=== PATIENT | female | born 1970 | race Caucasian/White ===

== ENCOUNTER 2025-03-07 08:52 | Day surgery (SDC) | payer OTHER, SELFPAY ==
--- OUTSIDE RECORDS SUMMARY | 2025-02-07 15:21 | XMS_ITS | Patient Health Record ---
Author Organization [facility] Address [address] [place] [address] Care Team Providers Care Manager Sales And Marketing Name Role Phone PERALTA, BETTIE Primary Care Provider Dinesh Klein Jr Unavailable Allergies No Known Allergies Reason For Referral No Information Medications Medication SIG (Take, Route, Frequency, Duration) Notes Start Date End Date Status Adderall Active PROzac 20 MG 1 capsule Orally Once a day Active clonazePAM Active Immunizations Vaccine Route Administration Date Status Comme nts Influenza Unknown 01/30/2025 Refused Social History Tobacco Use: Social History Observation Description Date Details (start date - stop date) Never Smoker NA - NA Tobacco Control (Standard) Question Answer Notes Tobacco use: Nonsmoker AUDIT-C (Standard) Question Answer Notes Did you have a drink contain ing alcohol in the past year? Yes How often did you have a dri nk containing alcohol in the past year? Daily or almost daily (4 points) How many drinks did you have on a typical day when you were drinking in the past year? 1 or 2 drinks (0 point) How often did you have six o r more drinks on one occasion in the past year? Less than monthly (1 point) Points 5 Interpretation Positive Problems Problem Type SNOMED Code ICD Code Onset Dates Problem Status W/U Status Risk Notes Problem Screening for malignant neoplasm of colon (115813886) Encounter for screening for malignant neoplasm of colon (Z12.11) Active confirmed Problem Pre-procedure evaluation check (111025744) Encounter for other preprocedural examination (Z01.818) Active confirmed Vital Signs Temperature 98.9 degrees Fahrenheit 01/30/2025 Blood pressure diastolic 01 mm Hg 01/30/2025 Height 65 in 01/30/2025 Blood pressure systolic 001 mm Hg 01/30/2025 Weight 121.8 lbs 01/30/2025 BMI 20.27 kg/m2 01/30/2025 Encounters Encounter Location Date Provider Diagnosis [facility] [address] [place] [address] 01/30/2025 Dinesh Андрей Castano Encounter for screening for malignant neoplasm of colon Z12.11 and Encounter for other preprocedural examination Z01.818 Assessments Encounter Date Diagnosis (ICD Code) Assessment Notes Treatment Notes Treatment Clinical Notes Section Notes 01/30/2025 Encounter for screening for malignant neoplasm of colon (ICD-10 - Z12.11) We discussed colonoscopy today. We discussed risks and benefits of the procedure today. She understands these and agrees to proceed. 01/30/2025 Encounter for other preprocedural examination (ICD-10 - Z01.818) We discussed colonoscopy today. We discussed risks and benefits of the procedure today. She understands these and agrees to proceed. Plan Of Treatment Future Test Test Name Order Date COLONOSCOPY 01/30/2025 Next Appt Details Provider Name:Dinesh schuster Jr, 03/07/2025 11:20:00 AM, [address] [facility] , [place], [place], [id number], Insurance Providers Payer Name Payer Address Payer Phone Subscriber Number Group Number Insured Name Patient Relationship to Insured Coverage Start Date Coverage End Date [employer] [address] [place] [address] [id number] JIMI MESA Self - patient is the insured Medical (General) History Medical History History ICD Code Anxiety/depression ADD
--- OUTSIDE RECORDS SUMMARY | 2025-02-07 15:21 | XMS_ITS | Patient Health Record ---
Author Organization [facility] Address [address] [address] Care Team Providers Care Groundwater Monitoring Technician Name Role Phone MARIANAJANEM Primary Care Provider Unavailab Viky Hummel Unavailable [phone] Reason For Referral No Information Medications Medication SIG (Take, Route, Frequency, Duration) Notes Start Date End Date Status KlonoPIN 2 MG 1 tablet Orally Active Amphetamine Salt Combo 10MG Active Lysteda 650 MG 2 tablets Orally Thr ee times a day; Duration: 3 days 08/01/2017 Active PROzac 40 MG Orally Once a day Active Social History Alcohol Screen (Audit-C) Question Answer Notes Did you have a drink contain ing alcohol in the past year? Yes How often did you have a dri nk containing alcohol in the past year? Monthly or less (1 point) How many drinks did you have on a typical day when you were drinking in the past year? 1 or 2 drinks (0 point) Points 1 Interpretation Negative Tobacco use other than smoking: Question Answer Notes Are you an other tobacco user? 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 Problem Type SNOMED Code ICD Code Onset Dates Problem Status W/U Status Risk Notes Problem Major depression, single episode (08940854) Major depressive disorder, single episode, unspecified (F32.9) Active confirmed Problem Molluscum contagiosum infection (83422831) Molluscum contagiosum (B08.1) Active confirmed resolved Problem Anxiety disorder (540141651) Anxiety disorder, unspecified (F41.9) Active confirmed Plan Of Treatment Pending Test Test Name Order Date Ultrasound : Sono Hystergram 04/13/2015 HIV 1/HIV 2 AB 09/23/2015 THIN PREP,HPV,HAIR IF HPV+ (>29YR)(SCRN) 05/17/2016 URINE CHLAMYDIA GC AMP PROBE 09/23/2015 MM Digital Mammo Screening 05/17/2016 MM Digital Mammo Screening 08/01/2017 PELVIC ULTRASOUND W/TRANSVAGINAL 018 Insurance Providers Payer Name Payer Address Payer Phone Subscriber Number Group Number Insured Name Patient Relationship to Insured Coverage Start Date Coverage End Date [employer] [address] [place] [address] [id number] JIMI RADER Self - patient is the insured Medical (General) History Medical History History ICD Code Anxiety disorder, unspecified F41.9 Major depressive disorder, single episod e, unspecified F32.9 Molluscum contagiosum B08.1 Excessive and frequent menstruation with irregular cycle N92.1 Unspecified contact dermatitis due to dr gale in contact with skin L25.1 Follicular disorder, unspecified L73.9 Surgical History Surgery Date(Month/Year) Breast Reduction 1992 LEEP 2004 R FOOT SURGERY 2016 ABDOMINOPLASTY 2016 ABDOMINOPLASTY 2017 Hospitalization History Reason Date(Month/Year) 2 Vaginal Deliveries See Surgical Hx
--- OUTSIDE RECORDS SUMMARY | 2025-02-07 15:21 | XMS_ITS | Clinical Summary ---
Author Organization [facility] Address [address] [place] [address] Care Team Providers Care Hydraulic Specialist Name Role Phone Unavailable Primary Care Provider Unavailabl e Surgical History Surgery Date Site/Laterality Comments BREAST REDUCTION 1990 PROCEDURE: [place] BREAST REDUCTION FOOT SURGERY 2015 Right PROCEDURE: HISTORICAL FOOT SURGERY; COMMENT: fracture OTHER SURGICAL HISTORY PROCEDURE: HISTORY OTHER; COMMENT: abdominal liposuction OTHER SURGICAL HISTORY PROCEDURE: HISTORY OTHER; COMMENT: Colposcopy With Loop Electrode Excision Of The Cervix Medical History Medical History Date Comments ADD (attention deficit disorder) 03/24/2017 DX:ADD (attention deficit disorder) Depression with anxiety 02/03/2015 DX:Depre ssion with anxiety Family History Medical History Relation Name Comments Other: car accident Brother Bladder Cancer Father htn Coronary artery disease Maternal Grandfather Asthma Mother Relation Name Status Comments Brother Father Alive Maternal Grandfather Maternal Grandmother Mother Paternal Grandfather Paternal Grandmother Sister Alive Social History Tobacco Use Types Packs/Day Years Used Date Smoking Tobacco: Never Smokeless Tobacco: Never Alcohol Use Standard Drinks/Week Comments Yes 4 (1 standard drink = 0.6 oz pur e alcohol) Comments Unknown Sex and Gender Information Value Date Recorded Sex Assigned at Not on file Legal Sex Female 2:01 AM EST Gender Identity Not on file Sexual Orientation Not on file Obstetrics History Plan of Treatment Health Maintenance Due Date Last Done Comments Breast Cancer Screening 1970 Hepatitis B Vaccines (1 of 3 - 19+ 3-dose series) 1989 Cervical Cancer Screening: P ap Smear 1991 Pneumococcal Vaccine: 50+ Ye ars (1 of 1 - PCV) 2020 Zoster Vaccines (1 of 2) 2020 Depression Screening 04/17/2024 COVID-19 Vaccine (2023-2 5 season) 2024 Influenza Vaccine (#1) 2024 03/24/2017 DTaP,Tdap,and Td Vaccines (2 - Td or Tdap) 03/24/2027 03/24/2017 RSV Immunization Adult Patie nts (1 - 1-dose 75+ series) 2045 HIB Vaccines Aged Out No longer eligi ble based on patient's age to complete this topic HPV Vaccines Aged Out No longer eligi ble based on patient's age to complete this topic Hepatitis A Vaccines Aged Out No long er eligible based on patient's age to complete this topic IPV Vaccines Aged Out No longer eligi ble based on patient's age to complete this topic MMR Vaccines Aged Out No longer eligi ble based on patient's age to complete this topic Meningococcal ACWY Vaccine Aged Out N o longer eligible based on patient's age to complete this topic Meningococcal B Vaccine Aged Out No l onger eligible based on patient's age to complete this topic RSV Immunization Patients Un lyndsey 20 months Aged Out No longer eligible b ased on patient's age to complete this topic Varicella Vaccines Aged Out No longer eligible based on patient's age to complete this topic
--- NOTE | 2025-03-05 09:21 | HO.ANESPROP2 ---
HPI - Anesthesia Eval Consult details Narrative: 54 yr old female for colonoscopy
[2025-03-05 13:21] VITALS: BMI 20.3
[2025-03-07 09:10] VITALS: BMI 19.4
[2025-03-07 09:21] VITALS: BP 124/85; PULSE 82; RESP 16; TEMP 36.8; O2SAT 96
--- NOTE | 2025-03-07 09:22 | HO.ANESPROP2 ---
HPI - Anesthesia Eval Consult details Narrative: colon screen [facility] Past Medical History Medical History ADD (attention deficit disorder) Anxiety Depression Family History Family history of problems with anesthesia: No Surgical History Surgical History H/O colonoscopy History of Problems with Anesthesia: No Social History Social History Patient Tobacco Use Status: Never used Tobacco Use of substances other than those prescribed or required for medical reasons: No Are you DNR?: No Advance Directives: No Advance Directives Information Provided: Yes Patient : No Meds Allergies Allergy/AdvReac Type Severity Reaction Status Date / Time No Known Allergies Allergy Verified 03/07/25 09:15 Active Medications: Current Medications Lactated Ringer's (Lr) 1,000 mls @ 100 mls/hr IVCONT .Q10H JYOTI Home Medications ?Medication ?Instructions ?Recorded ?Confirmed ?Last Taken ?Type clonazepam 1 mg tablet 1 - 2 mg PO BEDTIME 03/05/25 03/05/25 Unknown History dextroamphetamine-amphetamine 20 1 tab PO BID 03/05/25 03/05/25 Unknown History mg tablet fluoxetine 20 mg capsule (Prozac) 20 mg PO DAILY 03/05/25 03/05/25 Unknown History Exam Height,Weight and Vital Signs: Height 5 ft 5 in Weight 53 kg Airway Mallampati Class: II TM Dist: >3cm Neck ROM: Full Heart: rrr Lungs: cta Assessment and Plan Assessment Anesthesia Assessment: Anesthesia Plan Discussed and Chart Reviewed Final Anesthetic Review Family History of Problems with Anesthesia: No History of Problems with Anesthesia: No NPO: Yes ASA Class: II Final Preanesthetic Review: No Changes in Pt Med Stat, Meds/Allgs Chart Reviewed, Consent Obtained/Reviewed and Anes Risks/Benef Reviewed Patient Risk: Low Procedure Risk: Low Anesthetic Plan Anesthetic Plan: MAC: and Agree w/ Assess. and Plan Disposition: Standard PACU
[2025-03-07] MEDS: Lactated Ringers 1,000 ML 100 ML IVCONT (09:34)
--- NOTE | 2025-03-07 10:35 | MHC.SHP ---
Pre-Procedural Eval Section A - 24 Hr Update-Section A only Date of Service: 03/07/25 The patient is an INPATIENT: No Changes since office visit: No Cold of Flu in the past 2 weeks, No New Medical Problems, No Changes in Medication and No Patient answered all questions The patient has been examined within 24 hours of the surgical procedure. The History & Physical has been completed within 30 days and I have reviewed it.: Yes Section B - Complete if H&P > 30 days Chief Complaint: screening Allergies: Allergies Allergy/AdvReac Type Severity Reaction Status Date / Time No Known Allergies Allergy Verified 03/07/25 09:15 Plan I have reviewed the history and physical and performed a pertinent physical examination on my patient. No changes have occurred unless specified. Time Spent With Patient Time: Total time managing care of this patient today ____ minutes.
[2025-03-07 11:38] VITALS: BP 101/67; PULSE 76; RESP 16; TEMP 37.2; O2SAT 99
[2025-03-07 11:53] VITALS: BP 98/65; PULSE 73; RESP 17; O2SAT 100
[2025-03-07 12:06] VITALS: BP 117/78; PULSE 61; RESP 15; TEMP 36.9; O2SAT 100
--- NOTE | 2025-03-07 12:08 | OP_ITS ---
DATE OF SERVICE: 03/07/2025 SURGEON: Dinesh Chiang MD INDICATIONS: Colon cancer screening PREOPERATIVE DIAGNOSIS: POSTOPERATIVE DIAGNOSIS: PROCEDURE PERFORMED: Colonoscopy to the terminal ileum. ESTIMATED BLOOD LOSS: COMPLICATIONS: ANESTHESIA: Monitored anesthesia care. ASSISTANTS: SPECIMENS: DESCRIPTION OF PROCEDURE: A history and physical was performed. The risks and benefits of the procedure were explained to the patient. Informed consent was obtained. The patient was placed in the left lateral decubitus position. A digital rectal exam was performed and was found to be normal. The Olympus pediatric video colonoscope was introduced into the rectum and advanced to the cecum. The cecum was identified by transillumination, palpation, and identification of the ileocecal valve. Examination was performed, and the scope was removed. She tolerated the procedure well and was returned to the recovery area in stable condition. FINDINGS: The terminal ileum was examined and appeared normal. The visualized colonic mucosa was normal. The quality of the prep was good. No polyps were identified. Retroflexed examination showed some small internal hemorrhoids. IMPRESSION: Normal colonoscopy. RECOMMENDATION: 1. Follow up as needed. 2. Repeat colonoscopy is recommended in 10 years for average-risk individuals. MD NIA Cason/MARQUIS / [id number]
== END 2025-03-07 12:45 | disposition home or self-care (01) ==
PROVIDERS: PCP Internal Medicine; Visit Provider Internal Medicine Gastroenterology
PROC: 0DJD8ZZ Inspection of Lower Intestinal Tract, Via Natural or Artificial Opening Endoscopic (ICD-10-PCS; CPT 45378; principal; 2025-03-07 10:40)
DX: Z12.11 Encounter for screening for malignant neoplasm of colon (principal); K64.8 Other hemorrhoids
CPT/HCPCS: 45378; J2704